=== PATIENT | female | born 1935 | race African-American/Black ===

== ENCOUNTER 2023-01-09 06:56 | Emergency (ER) | payer MEDICARE ==
[~2023-01-09] VITALS: Ht 162.6 cm; Wt 113.6 kg
[2023-01-09] MEDS ORDERED: SODIUM BICARBONATE [ADULT] 8.4% 50 MEQ/50 ML SYRINGE IVP ONE (06:58)
[2023-01-09] MEDS ORDERED: ATROPINE SULFATE 0.1 MG/ML 10 ML SYRINGE IVP ONE (06:58)
[2023-01-09] MEDS ORDERED: EPINEPHrine 1:10,000 [1 MG/10 ML] SYRINGE IVP ONE (06:58)
[2023-01-09] MEDS ORDERED: NOREPINEPHRINE 8 MG/D5%-WATER 250 ML IV PRN (07:00)
[2023-01-09] MEDS ORDERED: NALOXONE HCL 1 MG/ML 2 ML SYRINGE IVP ONE (07:00)
[2023-01-09] MEDS ORDERED: SODIUM BICARBONATE 50 MEQ/50 ML VIAL ONE (07:15)
[2023-01-09] MEDS ORDERED: LIDOCAINE/PF 1% 30 ML VIAL ONE (07:15)
[2023-01-09] MEDS ORDERED: IOHEXOL 300 MG/ML 100 ML VIAL ONE (07:16)
[2023-01-09 07:26] LABS: GLUCOSE,POINT OF CARE 134 MG/DL (70-110)
[2023-01-09] MEDS ORDERED: 0.9% SODIUM CHLORIDE 10 ML SYRINGE IVP PRN (07:30)
[2023-01-09 07:32] LABS: EOSINOPHILS % (AUTO) 2.2 % (1.0-6.0); HEMATOCRIT 33.7 % (36-46); HEMOGLOBIN 10.4 g/dL (12.0-16.0); LYMPHOCYTES % (AUTO) 50.2 % (22.0-44.0); MEAN CORPUSCULAR HEMOGLOBIN 28.2 pg (26.0-34.0); MEAN CORPUSCULAR HGB CONC 30.9 G/dL (31.0-37.0); MEAN CORPUSCULAR VOLUME 91 fL (80-100); MONOCYTES # (AUTO) 0.4 K/uL (0.1-1.0); MONOCYTES % (AUTO) 7.5 % (2.0-9.0); NEUTROPHILS # (AUTO) 2.3 K/uL (1.8-7.7); NEUTROPHILS % (AUTO) 39.1 % (40.0-70.0); PLATELET COUNT (AUTO) 131 K/uL (150-450); RED CELL DISTRIBUTION WIDTH 15.6 % (11.5-14.5)
[2023-01-09 07:41] LABS: ANION GAP 16 mmol/L (8-16); CALCIUM, TOTAL 8.5 mg/dL (8.8-10.5); CARBON DIOXIDE 17 mmol/L (22-29); CHLORIDE 109 mmol/L (98-107); CREATININE 3.72 mg/dL (0.60-1.30); GLOMERULAR FILTR. RATE CALC 14 mL/min (>60); GLUCOSE,RANDOM 258 mg/dL (70-110); SODIUM SERUM 142 mmol/L (136-145); UREA NITROGEN, BLOOD 95 mg/dL (7-18)
[2023-01-09 07:48] LABS: ALANINE AMINOTRANSFERASE 25 U/L (12-78); ALBUMIN 2.6 g/dL (3.4-5.0); ALKALINE PHOSPHATASE 60 U/L (46-116); ASPARTATE AMINOTRANSFERASE 28 U/L (15-37); BILIRUBIN,TOTAL 0.3 mg/dL (0.1-1.0); CREATINE KINASE, TOTAL ONLY 37 U/L (26-192); TOTAL PROTEIN, SERUM 5.6 g/dL (6.4-8.2)
[2023-01-09 07:49] LABS: B-TYPE NATRIURETIC PEPTIDE 400 pg/mL (0-100)
[2023-01-09 07:54] LABS: INR 1.2 (0.9-1.1); PROTHROMBIN TIME 12.2 SEC (9.4-11.6)
[2023-01-09 07:55] LABS: D-DIMER > 35.20 mg/L FEU (0.00-0.50)
[2023-01-09 07:57] LABS: LACTIC ACID 7.5 mmol/L (0.4-2.0)
[2023-01-09] MEDS ORDERED: ETOMIDATE 2 MG/ML 10 ML VIAL IVP ONE (09:30)
[2023-01-09] MEDS ORDERED: ROCURONIUM BROMIDE 10 MG/ML 5 ML VIAL IVP ONE (09:30)
[2023-01-09 09:32] VITALS: BP 90/45
== END 2023-01-09 11:32 ==
LOC: EMS 06:57
DX: I46.9 Cardiac arrest, cause unspecified (principal); E11.9 Type 2 diabetes mellitus without complications
CPT/HCPCS: 99291; 94002; 92950; 31500; 96374; 71045; 96375; 80053; 82550; 82962; 83605; 83880; 84484; 85025; 85379; 85610; 85730; 36415; 93005; 84145; J0461; J0171; J3490 ×3; J2310; Q9967